=== PATIENT | male | born 1975 ===

== ENCOUNTER 2021-06-17 10:12 | Emergency (ER) | payer OTHER, SELFPAY ==
[2021-06-17 10:31] VITALS: BP 138/87; PULSE 65; RESP 20; TEMP 36.7; O2SAT 100
[2021-06-17 10:36] VITALS: BP 138/87; PULSE 65; RESP 20; TEMP 36.7; O2SAT 100
--- NOTE | 2021-06-17 10:57 | ED.BACK ---
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 Patient states he has a shorter 3-hour history of low back pain that is mild, worse with motion, better at rest and somewhat diffuse. It radiates slightly to the left lateral knee; no bowel?bladder symptoms, hematuria/frequency/urgency/dysuria, abdominal pain, numbness/weakness, prior injury. Related Data Home Medications Medication Instructions Recorded Confirmed No Home Medications 06/17/21 06/17/21 Allergies Allergy/AdvReac Type Severity Reaction Status Date / Time No Known Allergies Allergy Unverified 04/27/19 15:33 Review of Systems Review of Systems: Narrative: General/Constitutional: No weight loss,fever Eyes: N0: Redness,discharge Ears/Nose/Throat: No: Epistaxis,ear discharge Respiratory: Denies: Hemoptysis Gastrointestinal: No Vomiting, Bleeding-rectal Skin: No Lumps, eruption Neurologic: No Focal Weakness,Sz Hematologic: Denies: Petechiae/Purpura Psychiatric: No: Suicida ideationl All Other Systems: Reviewed and Negative [facility] Family History Family History (Updated 08/19/17 @ 13:52 by DOCTOR UNKNOWN) Other Acute myocardial infarction Cerebrovascular accident Family history of malignant neoplasm Hypertension Social History Social History Smoking status: Former smoker Smoking end date: 11/22/98 Alcohol intake: current Comments At time of signature, agree with nursing past medical, surgical, social and family history. There is no relevant family history pertinent to the presenting complaint Exam Narrative: Exam Narrative: General Appearance: Well appearing, Well nourished EYE: PERRLA, Conjunctiva clear Ears: External ear normal Nose: Normal nose Mouth/Throat: Normal appearing, Normal lips Neck: Supple Respiratory: Airway patent Abdomen: Soft Musculoskeletal: Normal strength (no footdrop, 5/5 : EH L-FHL, gastroc-AT, no saddle weakness) Spine/Back: Paraspinal muscle tender (with mild-mod decreased ROM ) Skin: Normal color, no sciatic notch tenderness Neurological: A&O x3, CN II-XII intact, Normal reflexes (symmetric, trace KJ, trace AJ) Psychiatric: Normal mood Course Vital Signs Vital signs: Vital Signs Temperature 98.0 F 06/17/21 10:31 Pulse Rate 65 06/17/21 10:31 Respiratory Rate 20 06/17/21 10:31 Blood Pressure 138/87 06/17/21 10:31 Pulse Oximetry 100 06/17/21 10:31 Temperature 98.0 F 06/17/21 10:36 Pulse Rate 65 06/17/21 10:36 Respiratory Rate 20 06/17/21 10:36 Blood Pressure 138/87 06/17/21 10:36 Pulse Oximetry 100 06/17/21 10:36 Discharge Plan Discharge Clinical Impression: Low back strain Qualifiers: Encounter type: initial encounter Qualified Code(s): S39.012A - Strain of muscle, fascia and tendon of lower back, initial encounter Patient Disposition: Home, Self-Care Condition: Stable Instructions: Lower Back Exercises (ED) Additional Instructions: Prescription pain medicines may cause drowsiness, do not drive/operate machinery Pain medicines may be combined with OTC preparations like Aleve Prescriptions: New acetaminophen-codeine 300-30 mg tablet 1 - 1.5 tablet PO HS PRN (Reason: pain) Qty: 10 RF: 0 tramadol 50 mg tablet 50 mg PO TID PRN (Reason: pain) Qty: 20 RF: 0 No Action No Home Medications RF: 0 Follow-up/Referrals: Darrin,JULIUS Keene [Primary Care Provider] - Stand Alone Forms: Work/School Release IP
== END 2021-06-17 11:03 | disposition home or self-care (01) ==
PROVIDERS: Emergency Provider Emergency Medicine; PCP Nurse Practitioner Adult Health
DX: S39.012A Strain of muscle, fascia and tendon of lower back, initial encounter (principal); X58.XXXA Exposure to other specified factors, initial encounter; Z87.891 Personal history of nicotine dependence
CPT/HCPCS: 99213; G0463

== ENCOUNTER → 2022-07-24 11:30 | Outpatient (CLI) | payer BC, SELFPAY ==
--- NOTE | ~2022-07-24 | MR_ITS ---
EXAMINATION: MR hip LT w con DATE: 07/24/2022 13:37 INDICATION: Left hip pain with palpable labral tear TECHNIQUE: Magnetic resonance (MR) arthrogram of the left hip was performed following intra-articular gadolinium contrast injection and without intravenous contrast. Details of the hip joint injection h ave been dictated separately. Sequences included small field of view of the left hip with axial and s agittal T1-weighted FS SE and T2-weighted FS FSE and coronal T1-weighted SE and T2-weighted FS FSE. Additional T1-weighted FGRE images in a radial pattern oriented orthogonal to the acetabular rim were obtained for evaluation of the labrum. COMPARISON: None. FINDINGS: Bones/labrum/cartilage: Alignment is normal. No fracture, avascular necrosis or pathologic marrow replacing process. There a re small marginal osteophytes along the left acetabular rim extending into the peripheral margin labr um. There are also relatively symmetric bilateral os acetabuli at the anterior aspect of both the lef t and right acetabular better appreciated on CT of the abdomen and pelvis dated 516/. There is a ve ry small shallow cleft at the chondral labral junction at the 12:00 position. No evident tear of the labrum proper. Mild partial-thickness cartilage loss with smooth chondral surface at the posterior as pect of the femoral head and acetabulum. There is decreased anterosuperior femoral head/neck offset w hich could predispose towards cam-type femoral acetabular impingement. Fluid: Physiologic amount fluid in the right hip joint. Injected contrast in the left hip joint with some ex travasated contrast in the soft tissues anterior to the left hip at the site of injection. No bursiti s or other abnormal fluid collections. Soft tissues: Normal and symmetric muscle bulk and signal in the pelvis and visualized proximal thighs. The bilater al iliopsoas, gluteal and proximal hamstring tendons are normal. Limited evaluation of visceral organ s of the pelvis is unremarkable. No pathologically enlarged pelvic/inguinal lymphadenopathy. IMPRESSION: 1. Mild osteoarthritis at the left hip and tiny shallow cleft at the chondral labral junction at the 12:00 position of the left acetabular labrum which appears otherwise intact with no evident tear exte nding into the labrum. 2. Bilateral decreased femoral head/neck offset which could predispose towards cam-type femoral aceta bular impingement. Reviewed, dictated and finalized at location [facility]. IMPRESSION: 1. Mild osteoarthritis at the left hip and tiny shallow cleft at the chondral l abral junction at the 12:00 position of the left acetabular labrum which appear s otherwise intact with no evident tear extending into the labrum. 2. Bilateral decreased femoral head/neck offset which could predispose towards cam-type femoral acetabular impingement.
--- NOTE | ~2022-07-24 | XR_ITS ---
XR fl inj hip LT for MR/CT DATE: 07/24/2022 13:55 INDICATION: Pre-MR hip procedure intra-articular contrast material injection; probable labral tear of left hip. Left hip pain. TECHNIQUE: The purpose of the procedure, technique and potential complications were discussed with th e patient. The patient verbalized understanding and gave consent. Timeout procedure confirmed patient name, date of , procedure and appropriate side. The skin of the anterolateral aspect of the proximal left thigh was prepared with sterile Betadine so lution. Sterile drape was applied. 1% lidocaine local anesthetic was a to the skin and under lying subcutaneous tissues of the lateral proximal anterior left thigh. Using fluoroscopic guidance, a 22-gauge spinal needle was introduced into the left hip joint space near the junction of the femora l head and neck. 12 CC of mixed multi-Yehuda, Omnipaque and lidocaine was injected, confirming intra-a rticular position by fluoroscopy. The needle was then withdrawn. The patient tolerated the procedure very well, without complaint or apparent complication. IMPRESSION: Fluoroscopically guided pre-MRI examination percutaneous left hip intra-articular injecti on of mixed contrast material including multi-Yehuda, Omnipaque, in addition to some lidocaine Reviewed, dictated and finalized at [facility]. Reviewed, dictated and finalized at location [facility]. IMPRESSION: Fluoroscopically guided pre-MRI examination percutaneous left hip i ntra-articular injection of mixed contrast material including multi-Yehuda, Omni paque, in addition to some lidocaine
== END ==
PROVIDERS: PCP Nurse Practitioner Adult Health; Visit Provider Orthopaedic Surgery
DX: M16.12 Unilateral primary osteoarthritis, left hip (principal)
CPT/HCPCS: 20610; 73722; 77002; A9577; Q9967